=== PATIENT | female | born 1995 | race Two or more races ===

== ENCOUNTER 2018-02-01 14:52 | Observation (INO) | payer OTHER | END 2018-02-01 16:15 | disposition home or self-care (01) | LOC: 3 SO LND 14:52 | DX: O26.893 Other specified pregnancy related conditions, third trimester (principal); R10.30 Lower abdominal pain, unspecified; Z3A.31 31 weeks gestation of pregnancy | CPT/HCPCS: G0378; G0379 ==

== ENCOUNTER → 2019-10-18 | Outpatient (CLI) | payer OTHER ==
--- NOTE | 2019-10-19 08:54 | RAD ---
EXAM: Obstetrics sonogram. HISTORY: Size and dates assessment. TECHNIQUE: Sonographic imaging of a gravid uterus was performed. COMPARISON: None. FINDINGS: There is a single intrauterine fetus in breech presentation with a normal heart rate of 144 bpm. There is an anterior placenta without evidence of placenta previa. The amniotic fluid index is normal at 17.5 cm. The cervix is closed and measures 3.2 cm in length. There is a three-vessel umbilical cord with normal insertion. The stomach, kidneys, bladder, spine, facial profile, and extremities are unremarkable. The right ventricle or outflow tract is not well seen. The heart is otherwise unremarkable. The lateral ventricles are not well seen due to head positioning. The biparietal diameter is 6.37 cm, corresponding with 25 weeks and 5 days. The head circumference is 24.27 cm, corresponding with 26 weeks and 2 days. The abdominal circumference is 21.09 cm, corresponding with 25 weeks and 4 days. The femoral length is 4.55 cm, corresponding with 25 weeks and 0 days. The estimated gestational age patient combined ultrasound measurements is 25 weeks and 5 days and the estimated weight is 817 g. This corresponds with the 46th percentile for a gestational age of 25 weeks and 3 days based on LMP. The estimated due date is 01/26/2020. IMPRESSION: 1. Single intrauterine fetus with normal heart rate in breech presentation with a gestational age based on ultrasound measurements of 25 weeks and 5 days. 2. Suboptimal evaluation of the right ventricular outflow tract and lateral ventricles due to presentation. The remainder of the anatomy is grossly unremarkable. Electronically signed by: Rachel Bentley MD (10/19/2019 8:51 AM) [facility] [place]
== END | disposition home or self-care (01) ==
LOC: US 14:54
PROVIDERS: ATTEND Obstetrics & Gynecology
DX: O32.1XX0 Maternal care for breech presentation, not applicable or unspecified (principal); Z3A.25 25 weeks gestation of pregnancy
CPT/HCPCS: 76805